=== PATIENT | male | born 1970 | race Caucasian/White ===

== ENCOUNTER 2017-09-13 02:01 | Emergency (ER) | payer OTHER, BC ==
[~2017-09-13] VITALS: Ht 188 cm; Wt 113.5 kg
[~2017-09-13 02:01] MED LIST: DIAZ5 PO; MOTR200T PO; TRAM50 PO
[2017-09-13 02:15] VITALS: BP 111/61; PULSE 80; RESP 16; TEMP 98; O2SAT 96
[2017-09-13] MEDS ORDERED: SODIUM CHLORIDE 0.9% FLUSH 10 ML FLUSH IV FLUSH PRN (02:30)
[2017-09-13] MEDS ORDERED: MORPHINE SULFATE 4 MG/ML INJ IV PUSH ONE (02:30)
[2017-09-13 02:35] VITALS: BP 122/67; PULSE 80; RESP 16; O2SAT 97
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
[2017-09-13 03:00] VITALS: BP 112/65; PULSE 80; RESP 16; O2SAT 96
[2017-09-13 03:08] LABS: AUTOMATED NEUTROPHIL # 5.4 TH/MM3 (1.8-7.7); BASOPHIL % 0.2 % (0.0-2.0); EOSINOPHIL # 0.2 TH/MM3 (0-0.4); EOSINOPHIL % 2.8 % (0.0-4.0); HEMOGLOBIN 13.5 GM/DL (13.0-17.0); LYMPH % 25.3 % (9.0-44.0); LYMPHOCYTE # 2.2 TH/MM3 (1.0-4.8); MEAN CELL VOLUME 91.3 FL (80.0-100.0); MEAN CORPUSCULAR HEMOGLOBIN 30.8 PG (27.0-34.0); MEAN CORPUSCULAR HGB CONC 33.7 % (32.0-36.0); MEAN PLATELET VOLUME 6.8 FL (7.0-11.0); MONO % 9.7 % (0.0-8.0); MONOCYTE # 0.8 TH/MM3 (0-0.9); PLATELET COUNT 281 TH/MM3 (150-450); RED BLOOD COUNT 4.38 MIL/MM3 (4.50-5.90); RED CELL DISTRIBUTION WIDTH 13.5 % (11.6-17.2); WHITE BLOOD COUNT 8.6 TH/MM3 (4.0-11.0)
[2017-09-13] MEDS ORDERED: IOHEXOL 350 MG/ML 10 ML VIAL (for RAD DIAG) IVCONTRAST ONE (03:11)
[2017-09-13 03:18] LABS: CHLORIDE 105 MEQ/L (98-107); SODIUM (NA) 139 MEQ/L (136-145)
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
[2017-09-13 03:21] LABS: ALBUMIN 3.8 GM/DL (3.4-5.0); BICARBONATE 28.9 MEQ/L (21.0-32.0); BLOOD UREA NITROGEN 20 MG/DL (7-18); CALCIUM 8.9 MG/DL (8.5-10.1); GLUCOSE,RANDOM 92 MG/DL (74-106)
[2017-09-13 03:23] LABS: INTERNATIONAL NORMALIZED RATIO 0.9 RATIO; PROTHROMBIN TIME - PATIENT 10.3 SEC (9.8-11.6)
[2017-09-13 03:24] LABS: ALT (GPT) 25 U/L (12-78); AST (GOT) 13 U/L (15-37); CREATININE 0.85 MG/DL (0.60-1.30); GLOMERULAR FILTRATION RATE 97 ML/MIN (>89)
[2017-09-13 03:26] LABS: TOTAL BILIRUBIN ADULT 0.3 MG/DL (0.2-1.0); TOTAL PROTEIN 7.5 GM/DL (6.4-8.2)
[2017-09-13 03:27] LABS: ALKALINE PHOSPHATASE 70 U/L (45-117)
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
[2017-09-13 03:55] VITALS: BP 129/66; PULSE 68; RESP 16; O2SAT 95
[2017-09-13] MEDS ORDERED: HYDR-3533 PO (03:58)
== END 2017-09-13 04:18 | disposition home or self-care (01) ==
LOC: PHED 02:01
DX: S69.91XA Unspecified injury of right wrist, hand and finger(s), initial encounter (principal); S70.02XA Contusion of left hip, initial encounter; M16.0 Bilateral primary osteoarthritis of hip; V59.40XA Driver of pick-up truck or van injured in collision with unspecified motor vehicles in traffic accident, initial encounter
CPT/HCPCS: 73090; 73130; 74177; 80053; 85025; 85610; 85730; 96374; 99285; J2270; L3808; Q9967